=== PATIENT | female | born 1990 | race Two or more races ===

== ENCOUNTER 2021-08-22 13:10 | Outpatient (REF) | payer OTHER, SELFPAY ==
[2021-08-22 14:57] LABS: Binax Internal Control QC Valid; Binax Lot number: 9864; Binax Now Covid-19 Ag Positive (Negative)
== END 2021-08-22 13:11 | disposition home or self-care (01) ==
LOC: HO.LAB 13:10
PROVIDERS: Visit Provider Internal Medicine
DX: Z20.822 Contact with and (suspected) exposure to COVID-19 (principal)
CPT/HCPCS: 36415; C9803